=== PATIENT | male | born 1965 | race Caucasian/White ===

== ENCOUNTER 2019-03-28 09:17 | Emergency (ER) | payer SELFPAY ==
[~2019-03-28] VITALS: Ht 177.8 cm; Wt 90.4 kg
--- NOTE | 2019-03-28 09:30 | NUR ---
Patient ambulated to bed 7 with family. RN evaluating patient at bedside.
[2019-03-28 09:32] VITALS: BP 154/95
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
[2019-03-28] MEDS ORDERED: IBUPROFEN 800 MG TAB PO ONE (09:45)
[2019-03-28] MEDS ORDERED: BACITRACIN OINT 500 UNITS/GM PKT TP ONE (09:50)
--- NOTE | 2019-03-28 10:15 | NUR ---
Patient returned from CT via w/c and placed in bed 7.
[2019-03-28 11:31] VITALS: BP 154/95
--- NOTE | 2019-03-28 11:32 | NUR ---
Patient discharged with v/s stable. Written and verbal after care instructions given and explained. Patient verbalized understanding. Ambulatory with steady gait. All questions addressed prior to discharge. Advised to follow up with PMD. PRESCRIPTION OF NORCO AND NAPROXEN GIVEN
== END 2019-03-28 11:32 | disposition home or self-care (01) ==
LOC: MED 09:17
DX: S22.31XA Fracture of one rib, right side, initial encounter for closed fracture (principal); W01.198A Fall on same level from slipping, tripping and stumbling with subsequent striking against other object, initial encounter; Y93.89 Activity, other specified; Y92.89 Other specified places as the place of occurrence of the external cause; Y99.8 Other external cause status
CPT/HCPCS: 71100; 99284